=== PATIENT | female | born 1940 | race Two or more races ===

== ENCOUNTER 2016-12-22 10:16 | Emergency (ER) | payer MEDICARE, MEDICAID ==
[~2016-12-22] VITALS: Ht 30.5 cm; Wt 63.5 kg
[~2016-12-22 10:16] MED LIST: ALEN70TA55 PO; AMLO10TA2 PO; ASPI-231 PO; DICL-164 PO; HYDR25TA4 PO; METF-314 PO; OMEPRAZOLE PO; PAR20T PO
[2016-12-22 11:03] LABS: Basophils # (auto) 0 uL; Basophils % (auto) 0.5 % (0.0-2.0); Eosinophils # (auto) 0.2 uL; Eosinophils % (auto) 2.1 % (0.0-7.0); Hematocrit 36.8 % (36.0-46.0); Hemoglobin 12.3 g/dL (12.2-16.2); Lymphocytes # (auto) 2.9 uL; Lymphocytes % (auto) 37.3 % (10.0-50.0); Mean Corpuscular Hemoglobin 29.7 pg (28.0-32.0); Mean Corpuscular Hgb Conc. 33.4 g/dL (32.0-36.0); Mean Corpuscular Volume 88.8 fL (80.0-100.0); Mean Platelet Volume 10.1 fL (7.4-10.4); Monocytes # (auto) 0.4 uL; Monocytes % (auto) 5.6 % (0.0-12.0); Neutrophils # (auto) 4.3 uL; Neutrophils % (auto) 54.5 % (37.0-80.0); Platelet Count (auto) 257 10^3/uL (140-450); Red Cell Distribution Width 13.3 % (11.6-16.0); White Blood Cell 7.9 10^3/uL (4.4-10.8)
[2016-12-22 11:27] LABS: Albumin 3.8 g/dL (3.4-5.0); Alkaline Phosphatase 85 U/L (45-117); Anion Gap 14 (5-15); Aspartate Aminotransferase 18 U/L (15-37); Bilirubin, Total 0.3 mg/dL (0.2-1.0); Blood Urea Nitrogen 15 mg/dL (7-18); Calcium 8.9 mg/dL (8.5-10.1); Carbon Dioxide 27 mmol/L (21-32); Chloride 99 mmol/L (98-107); GFR African American 69 mL/min; GFR Non-African American 57 mL/min; Glucose 200 mg/dL (74-106); Magnesium 1.7 mg/dL (1.6-2.6); Potassium 3.1 mmol/L (3.5-5.1); Sodium 140 mmol/L (136-145)
[2016-12-22 11:29] LABS: INR 1.04 (0.9-1.15); Partial Thromboplastin Time 23.4 sec (22.64-33.71); Prothrombin Time 10.7 sec (9.37-12.3)
[2016-12-22 11:43] LABS: B-Type Natriuretic Peptide 39.56 pg/mL (0-100)
[2016-12-22 11:46] LABS: Temperature: 22.2 C (20.0-25.0)
[2016-12-22] MEDS ORDERED: POTASSIUM CHL 20 Meq TABLET PO ONE (13:15)
[2016-12-22 14:40] LABS: Urine RBC None Seen /hpf (0 - 4)
[2016-12-22 14:48] LABS: Urine Bilirubin Negative (Negative); Urine Blood Negative /uL (Negative); Urine Color Yellow (Yellow); Urine Glucose Normal (Normal); Urine Ketone Negative (Negative); Urine Nitrite Negative (Negative); Urine Squamous Epithelial Cell FEW /hpf (<5); Urine Urobilinogen Normal (Negative)
[2016-12-22 15:02] VITALS: BP 140/65
== END 2016-12-22 16:56 | disposition home or self-care (01) ==
LOC: EDBD 10:16 → ER 10:19
DX: S39.012A Strain of muscle, fascia and tendon of lower back, initial encounter (principal); M47.816 Spondylosis without myelopathy or radiculopathy, lumbar region; M79.7 Fibromyalgia; E87.6 Hypokalemia; R42 Dizziness and giddiness; R53.1 Weakness; E11.9 Type 2 diabetes mellitus without complications; I10 Essential (primary) hypertension; K21.9 Gastro-esophageal reflux disease without esophagitis; Z88.6 Allergy status to analgesic agent; W01.0XXA Fall on same level from slipping, tripping and stumbling without subsequent striking against object, initial encounter; Y93.89 Activity, other specified; Y99.8 Other external cause status; Y92.89 Other specified places as the place of occurrence of the external cause
CPT/HCPCS: 36415; 71010; 72131; 74176; 80053; 81001; 82962; 83690; 83735; 83880; 84484; 85025; 85610; 85730; 93005; 94761

== ENCOUNTER 2017-03-25 11:26 | Observation (INO) | payer MEDICARE, MEDICAID ==
[~2017-03-25] VITALS: Ht 152.4 cm; Wt 65.8 kg
[~2017-03-25 11:26] MED LIST changes: -ASPI-231 PO; -METF-314 PO
[2017-03-25] MEDS ORDERED: SODIUM CHLORIDE 0.9% 1,000 ML IVB ONE ×2 (11:48→13:12)
[2017-03-25 13:25] LABS: Basophils # (auto) 0 uL; Basophils % (auto) 0.5 % (0.0-2.0); CONDITION Y; Eosinophils # (auto) 0.2 uL; Eosinophils % (auto) 1.6 % (0.0-7.0); Hematocrit 37.3 % (36.0-46.0); Hemoglobin 12.7 g/dL (12.2-16.2); Lymphocytes # (auto) 2.4 uL; Lymphocytes % (auto) 26.3 % (10.0-50.0); Mean Corpuscular Hemoglobin 29.9 pg (28.0-32.0); Mean Corpuscular Hgb Conc. 34.1 g/dL (32.0-36.0); Mean Corpuscular Volume 87.5 fL (80.0-100.0); Mean Platelet Volume 9.9 fL (7.4-10.4); Monocytes # (auto) 0.6 uL; Monocytes % (auto) 6.7 % (0.0-12.0); Neutrophils % (auto) 64.9 % (37.0-80.0); Platelet Count (auto) 289 10^3/uL (140-450); Red Cell Distribution Width 13.3 % (11.6-16.0); White Blood Cell 9.3 10^3/uL (4.4-10.8)
[2017-03-25 13:40] LABS: INR 1.04 (0.9-1.15); Partial Thromboplastin Time 25.7 sec (22.64-33.71); Prothrombin Time 11.3 sec (9.37-12.3)
[2017-03-25 13:46] LABS: Magnesium 1.5 mg/dL (1.6-2.6)
[2017-03-25 13:50] LABS: Albumin 3.6 g/dL (3.4-5.0); Bilirubin, Total 0.4 mg/dL (0.2-1.0); Calcium 8.9 mg/dL (8.5-10.1); Total Protein 7.8 g/dL (6.4-8.2)
[2017-03-25 13:59] LABS: Potassium 2.9 mmol/L (3.5-5.1)
[2017-03-25] MEDS ORDERED: POTASSIUM CHL 20MEQ/100ML 100 ML IV SCH (14:15)
[2017-03-25] MEDS ORDERED: MAGNESIUM SULFATE 1GM/100ML 100 ML IV SCH (14:15)
[2017-03-25 15:11] LABS: Urine Bilirubin Negative (Negative); Urine Blood TRACE /uL (Negative); Urine Color Yellow (Yellow); Urine Glucose Normal (Normal); Urine Ketone Negative (Negative); Urine Mucus FEW (None Seen); Urine Nitrite Negative (Negative); Urine RBC 4 /hpf (0 - 4); Urine Squamous Epithelial Cell FEW /hpf (<5); Urine Urobilinogen Normal (Negative); Urine pH 6.5 (5.0-8.0)
[2017-03-25] MEDS ORDERED: POTASSIUM CHL 10% (20 MEQ/15ML) ORAL SOLN ONE (15:56)
[2017-03-25] MEDS ORDERED: POTASSIUM CHL 10% (20 MEQ/15ML) ORAL SOLN PO ONE (16:00)
[2017-03-25 16:03] VITALS: BP 138/66
== END 2017-03-25 16:21 | disposition short-term general hospital (02) | DRG 65 ==
LOC: EDBD 11:26 → ER 11:36 → OVERFLOW 13:16 → ER 16:10
PROVIDERS: ADMIT Family Medicine; ATTEND Family Medicine
DX: I61.8 Other nontraumatic intracerebral hemorrhage (principal); G81.94 Hemiplegia, unspecified affecting left nondominant side; N39.0 Urinary tract infection, site not specified; E11.9 Type 2 diabetes mellitus without complications; E78.5 Hyperlipidemia, unspecified; E83.42 Hypomagnesemia; E87.6 Hypokalemia; F01.50 Vascular dementia, unspecified severity, without behavioral disturbance, psychotic disturbance, mood disturbance, and anxiety; F32.9 Major depressive disorder, single episode, unspecified; I10 Essential (primary) hypertension; K21.9 Gastro-esophageal reflux disease without esophagitis; M81.0 Age-related osteoporosis without current pathological fracture; I67.2 Cerebral atherosclerosis; Z83.3 Family history of diabetes mellitus
CPT/HCPCS: 36415; 70450; 71010; 80053; 80320; 81001; 82962; 83735; 84484; 85025; 85610; 85730; 87040; 93005; 96361; 96365; 96368; 99285; G0378; J3475; J3480; J7030; 96367; 99291

== ENCOUNTER 2018-06-20 13:40 | Inpatient (IN) | payer MEDICARE, MEDICAID ==
[~2018-06-20] VITALS: Ht 152.4 cm; Wt 66.5 kg
[~2018-06-20 13:40] MED LIST changes: +ALEN1TAB32 PO; -ALEN70TA55 PO; +AMLO10TA12 PO; -AMLO10TA2 PO
[2018-06-20] MEDS ORDERED: SODIUM CHLORIDE 0.9% 1,000 ML IV ONE (13:43)
[2018-06-20] MEDS ORDERED: ONDANSETRON HCL 4 MG/2 ML VIAL IV ONE (13:45)
[2018-06-20 14:26] LABS: Basophils # (auto) 0.1 uL; Basophils % (auto) 0.8 % (0.0-2.0); Eosinophils # (auto) 0.3 uL; Eosinophils % (auto) 2.2 % (0.0-7.0); Hematocrit 34.3 % (36.0-46.0); Hemoglobin 11.1 g/dL (12.2-16.2); Lymphocytes # (auto) 1.4 uL; Lymphocytes % (auto) 12.3 % (10.0-50.0); Mean Corpuscular Hemoglobin 27.1 pg (28.0-32.0); Mean Corpuscular Hgb Conc. 32.3 g/dL (32.0-36.0); Mean Corpuscular Volume 83.9 fL (80.0-100.0); Monocytes # (auto) 0.8 uL; Monocytes % (auto) 6.9 % (0.0-12.0); Neutrophils # (auto) 9.1 uL; Neutrophils % (auto) 77.8 % (37.0-80.0); Platelet Count (auto) 358 10^3/uL (140-450); Red Blood Cells 4.09 10^6/uL (4.0-5.20); Red Cell Distribution Width 14.2 % (11.8-14.3); White Blood Cell 11.6 10^3/uL (4.4-10.8)
[2018-06-20 14:51] LABS: Alanine Aminotransferase 20 U/L (13-56); Albumin 2.4 g/dL (3.4-5.0); Alkaline Phosphatase 84 U/L (45-117); Anion Gap 9 (5-15); Aspartate Aminotransferase 20 U/L (15-37); BUN/Creatinine Ratio 17.4; Bilirubin, Total 0.4 mg/dL (0.2-1.0); Blood Urea Nitrogen 16 mg/dL (7-18); Calcium 8.2 mg/dL (8.5-10.1); Carbon Dioxide 21 mmol/L (21-32); Chloride 105 mmol/L (98-107); GFR African American 76 mL/min; GFR Non-African American 62 mL/min; Glucose 106 mg/dL (74-106); Potassium 3.5 mmol/L (3.5-5.1); Sodium 135 mmol/L (136-145); Total Protein 7.6 g/dL (6.4-8.2)
[2018-06-20 15:18] LABS: INR 1.06 (0.9-1.15); Partial Thromboplastin Time 28.8 sec (23.78-33.04); Prothrombin Time 11.3 sec (9.27-12.13)
[2018-06-20] MEDS ORDERED: DEXTROSE (50%) 50ML SYRG IV PRN (16:30)
[2018-06-20] MEDS ORDERED: MORPHINE SULF INJ 2 MG/ML SYRINGE 1ML IV PRN ×3 (16:30)
[2018-06-20] MEDS ORDERED: NITROGLYCERIN 0.4 MG SL TAB SL PRN (16:30)
[2018-06-20] MEDS ORDERED: LACTULOSE 20Gm/30ML SOLN PO PRN (16:30)
[2018-06-20] MEDS ORDERED: cefTRIAXone 1GM/10ml IVPUSH 10 ML IV ONE (16:30)
[2018-06-20] MEDS ORDERED: LORazepam 0.5 MG TAB PO PRN (16:30)
[2018-06-20] MEDS ORDERED: TEMAZEPAM 15 MG CAP PO PRN (16:30)
[2018-06-20 17:38] LABS: CRP High Sensitivity 10.8 mg/dL (< 0.3)
[2018-06-20] MEDS: InsuLIN REG 1unit/0.01ml Soln (100units/ml) SC SCH (18:00)
[2018-06-20] MEDS: ACCU-CHEK COMFORT CURVE STRIP VI SCH (18:04)
[2018-06-20 19:48] VITALS: BP 148/63
[2018-06-20 20:48] VITALS: BP 148/63
[2018-06-20] MEDS: metroNIDAZOLE 500MG/100ML 100 ML IV SCH (22:02)
[2018-06-20] MEDS: CARVEDILOL 3.125 MG TAB PO SCH (22:03)
[2018-06-21] MEDS: ACCU-CHEK COMFORT CURVE STRIP VI SCH ×4 (00:24→18:28)
[2018-06-21 01:35] LABS: Urine Bacteria FEW /hpf (None Seen); Urine Blood Negative /uL (Negative); Urine Hyaline Cast MOD /lpf (0 - 2); Urine Mucus FEW (None Seen); Urine Specific Gravity 1.021 (1.001-1.035); Urine WBC 33 /hpf (0 - 5)
[2018-06-21] MEDS ORDERED: LOSA25TA40 PO (03:23)
[2018-06-21] MEDS ORDERED: METF-370 PO (03:23)
[2018-06-21 05:11] VITALS: BP 142/62
[2018-06-21 05:47] LABS: Basophils # (auto) 0.1 uL; Basophils % (auto) 1.1 % (0.0-2.0); Eosinophils # (auto) 0.3 uL; Eosinophils % (auto) 2.9 % (0.0-7.0); Hematocrit 29.3 % (36.0-46.0); Hemoglobin 9.8 g/dL (12.2-16.2); Lymphocytes # (auto) 1.3 uL; Lymphocytes % (auto) 13.9 % (10.0-50.0); Mean Corpuscular Hemoglobin 27.8 pg (28.0-32.0); Mean Corpuscular Hgb Conc. 33.5 g/dL (32.0-36.0); Mean Corpuscular Volume 83.2 fL (80.0-100.0); Monocytes # (auto) 0.7 uL; Monocytes % (auto) 7.3 % (0.0-12.0); Neutrophils # (auto) 7.1 uL; Neutrophils % (auto) 74.8 % (37.0-80.0); Nucleated Red Blood Cells % 0.1 %; Platelet Count (auto) 327 10^3/uL (140-450); Red Blood Cells 3.52 10^6/uL (4.0-5.20); Red Cell Distribution Width 14.2 % (11.8-14.3); White Blood Cell 9.6 10^3/uL (4.4-10.8)
[2018-06-21] MEDS: metroNIDAZOLE 500MG/100ML 100 ML IV SCH (05:47)
[2018-06-21] MEDS: InsuLIN REG 1unit/0.01ml Soln (100units/ml) SC SCH ×4 (05:48→18:00)
[2018-06-21 06:06] LABS: Albumin 2.1 g/dL (3.4-5.0); BUN/Creatinine Ratio 19.5; Bilirubin, Total 0.4 mg/dL (0.2-1.0); Calcium 7.8 mg/dL (8.5-10.1); Potassium 3.7 mmol/L (3.5-5.1); Total Protein 6.3 g/dL (6.4-8.2)
[2018-06-21 06:12] LABS: Cholesterol 65 mg/dL (< 200); HDL Cholesterol 28 mg/dL (40-59); LDL Cholesterol 37 mg/dL (< 100); Triglycerides 71 mg/dL (< 150)
[2018-06-21 08:00] VITALS: BP 117/51
[2018-06-21] MEDS ORDERED: POTA1TAB61 PO (08:17)
[2018-06-21] MEDS ORDERED: cefTRIAXone 1GM/10ml IVPUSH 10 ML IV SCH (09:00)
[2018-06-21] MEDS ORDERED: PANT40TA2 PO (09:09)
[2018-06-21] MEDS ORDERED: SERT-138 PO (09:09)
[2018-06-21] MEDS ORDERED: ASPI81TA27 PO (09:11)
[2018-06-21] MEDS ORDERED: amLODIPine BESYLATE 5 MG TAB PO SCH (10:00)
[2018-06-21] MEDS: FUROSEMIDE 40 MG/4 ML VIAL IV SCH (10:43)
[2018-06-21] MEDS: CARVEDILOL 3.125 MG TAB PO SCH ×2 (10:44→22:25)
[2018-06-21] MEDS: PANTOPRAZOLE 40 MG TAB PO SCH (10:44)
[2018-06-21] MEDS: PARoxetine 20 MG TAB PO SCH (10:44)
[2018-06-21] MEDS: POTASSIUM CHL 20 Meq TABLET PO SCH (10:44)
[2018-06-21] MEDS: ENOXAPARIN SOD 30 MG/0.3 ML SYRINGE SC SCH (10:45)
[2018-06-21] MEDS: ENALAPRIL MALEATE 2.5 MG TAB PO SCH (10:45)
[2018-06-21 12:34] VITALS: BP 125/42
[2018-06-21] MEDS ORDERED: MORPHINE SULFATE 4 MG/ML SYR/VIAL IV PRN (16:00)
[2018-06-21 16:34] VITALS: BP 112/49
[2018-06-21] MEDS: SPIRONOLACTONE 25 MG TAB PO SCH (18:36)
[2018-06-21 21:24] VITALS: BP 123/56
[2018-06-22] MEDS: ACCU-CHEK COMFORT CURVE STRIP VI SCH ×4 (00:53→18:00)
[2018-06-22 05:15] VITALS: BP 124/54
[2018-06-22 05:57] LABS: Basophils # (auto) 0.1 uL; Eosinophils # (auto) 0.3 uL; Lymphocytes # (auto) 1.8 uL; Platelet Count (auto) 337 10^3/uL (140-450)
[2018-06-22 05:58] LABS: Eosinophils % (auto) 2.9 % (0.0-7.0); Hemoglobin 9.2 g/dL (12.2-16.2); Lymphocytes % (auto) 17.7 % (10.0-50.0); Mean Corpuscular Hemoglobin 27.3 pg (28.0-32.0); Mean Corpuscular Volume 82.6 fL (80.0-100.0); Monocytes # (auto) 0.7 uL; Monocytes % (auto) 6.9 % (0.0-12.0); Neutrophils # (auto) 7.1 uL; Neutrophils % (auto) 71.5 % (37.0-80.0); Red Blood Cells 3.39 10^6/uL (4.0-5.20); Red Cell Distribution Width 14.5 % (11.8-14.3)
[2018-06-22] MEDS: SPIRONOLACTONE 25 MG TAB PO SCH ×2 (06:00→18:00)
[2018-06-22] MEDS: InsuLIN REG 1unit/0.01ml Soln (100units/ml) SC SCH ×4 (06:00→18:00)
[2018-06-22 06:06] LABS: Albumin 2.1 g/dL (3.4-5.0); BUN/Creatinine Ratio 21.6; Bilirubin, Total 0.4 mg/dL (0.2-1.0); Calcium 8.2 mg/dL (8.5-10.1); Potassium 3.6 mmol/L (3.5-5.1); Total Protein 6.1 g/dL (6.4-8.2)
[2018-06-22 09:34] VITALS: BP 113/55
[2018-06-22] MEDS: FUROSEMIDE 40 MG/4 ML VIAL IV SCH (10:00)
[2018-06-22] MEDS: ENALAPRIL MALEATE 2.5 MG TAB PO SCH (10:00)
[2018-06-22] MEDS: ONDANSETRON HCL 4 MG/2 ML VIAL IV PRN (11:38)
[2018-06-22] MEDS: PANTOPRAZOLE 40 MG TAB PO SCH (11:39)
[2018-06-22] MEDS: ENOXAPARIN SOD 30 MG/0.3 ML SYRINGE SC SCH (11:39)
[2018-06-22] MEDS: PARoxetine 20 MG TAB PO SCH (11:40)
[2018-06-22] MEDS: POTASSIUM CHL 20 Meq TABLET PO SCH (11:40)
[2018-06-22 14:34] VITALS: BP 128/53
[2018-06-22 16:58] VITALS: BP 117/53
[2018-06-22 21:30] VITALS: BP 127/65
[2018-06-22] MEDS: CARVEDILOL 3.125 MG TAB PO SCH (21:52)
[2018-06-23] MEDS: ACCU-CHEK COMFORT CURVE STRIP VI SCH ×5 (00:06→21:51)
[2018-06-23 05:00] VITALS: BP 125/51
[2018-06-23] MEDS: InsuLIN REG 1unit/0.01ml Soln (100units/ml) SC SCH ×5 (05:29→21:50)
[2018-06-23] MEDS: SPIRONOLACTONE 25 MG TAB PO SCH ×2 (05:44→17:52)
[2018-06-23 06:15] LABS: Basophils # (auto) 0.1 uL; Basophils % (auto) 0.7 % (0.0-2.0); Eosinophils # (auto) 0.2 uL; Hematocrit 28.9 % (36.0-46.0); Hemoglobin 9.5 g/dL (12.2-16.2); Lymphocytes # (auto) 1.5 uL; Lymphocytes % (auto) 15.4 % (10.0-50.0); Mean Corpuscular Hgb Conc. 32.7 g/dL (32.0-36.0); Mean Corpuscular Volume 82.5 fL (80.0-100.0); Monocytes # (auto) 0.8 uL; Monocytes % (auto) 7.7 % (0.0-12.0); Neutrophils # (auto) 7.4 uL; Neutrophils % (auto) 74.2 % (37.0-80.0); Nucleated Red Blood Cells % 0.2 %; Platelet Count (auto) 362 10^3/uL (140-450); Red Cell Distribution Width 14.5 % (11.8-14.3)
[2018-06-23 06:42] LABS: BUN/Creatinine Ratio 25.4; Potassium 3.6 mmol/L (3.5-5.1)
[2018-06-23 09:25] VITALS: BP 124/50
[2018-06-23] MEDS: POTASSIUM CHL 20 Meq TABLET PO SCH (10:11)
[2018-06-23] MEDS: ENOXAPARIN SOD 30 MG/0.3 ML SYRINGE SC SCH (10:11)
[2018-06-23] MEDS: PARoxetine 20 MG TAB PO SCH (10:11)
[2018-06-23] MEDS: PANTOPRAZOLE 40 MG TAB PO SCH (10:11)
[2018-06-23] MEDS: FUROSEMIDE 40 MG/4 ML VIAL IV SCH (10:12)
[2018-06-23] MEDS: ENALAPRIL MALEATE 2.5 MG TAB PO SCH (10:12)
[2018-06-23] MEDS: CARVEDILOL 3.125 MG TAB PO SCH ×2 (10:13→21:37)
[2018-06-23] MEDS: ONDANSETRON HCL 4 MG/2 ML VIAL IV PRN (13:53)
[2018-06-23 14:41] VITALS: BP 115/54
[2018-06-23 17:19] VITALS: BP 133/58
[2018-06-23 22:00] VITALS: BP 138/67
[2018-06-24 05:00] VITALS: BP 143/56
[2018-06-24] MEDS: ACCU-CHEK COMFORT CURVE STRIP VI SCH ×4 (05:04→20:48)
[2018-06-24] MEDS: InsuLIN REG 1unit/0.01ml Soln (100units/ml) SC SCH ×4 (05:04→20:48)
[2018-06-24] MEDS: SPIRONOLACTONE 25 MG TAB PO SCH ×2 (05:09→18:43)
[2018-06-24 05:57] LABS: Basophils # (auto) 0.1 uL; Basophils % (auto) 0.9 % (0.0-2.0); Eosinophils # (auto) 0.3 uL; Eosinophils % (auto) 3.1 % (0.0-7.0); Hematocrit 29.3 % (36.0-46.0); Hemoglobin 9.7 g/dL (12.2-16.2); Lymphocytes # (auto) 1.5 uL; Lymphocytes % (auto) 14.8 % (10.0-50.0); Mean Corpuscular Hemoglobin 27.2 pg (28.0-32.0); Mean Corpuscular Hgb Conc. 32.9 g/dL (32.0-36.0); Mean Corpuscular Volume 82.7 fL (80.0-100.0); Monocytes # (auto) 0.9 uL; Monocytes % (auto) 8.6 % (0.0-12.0); Neutrophils # (auto) 7.3 uL; Neutrophils % (auto) 72.6 % (37.0-80.0); Platelet Count (auto) 368 10^3/uL (140-450); Red Blood Cells 3.55 10^6/uL (4.0-5.20); Red Cell Distribution Width 14.6 % (11.8-14.3); White Blood Cell 10.1 10^3/uL (4.4-10.8)
[2018-06-24 06:01] LABS: BUN/Creatinine Ratio 17.3; Calcium 7.6 mg/dL (8.5-10.1); Potassium 3.4 mmol/L (3.5-5.1)
[2018-06-24 09:21] VITALS: BP 145/73
[2018-06-24] MEDS: PANTOPRAZOLE 40 MG TAB PO SCH (09:56)
[2018-06-24] MEDS: PARoxetine 20 MG TAB PO SCH (09:56)
[2018-06-24] MEDS: ENALAPRIL MALEATE 2.5 MG TAB PO SCH (09:57)
[2018-06-24] MEDS: POTASSIUM CHL 20 Meq TABLET PO SCH (09:57)
[2018-06-24] MEDS: CARVEDILOL 3.125 MG TAB PO SCH ×2 (09:58→22:57)
[2018-06-24] MEDS: FUROSEMIDE 40 MG/4 ML VIAL IV SCH (09:58)
[2018-06-24] MEDS: ENOXAPARIN SOD 30 MG/0.3 ML SYRINGE SC SCH (09:58)
[2018-06-24] MEDS ORDERED: POTASSIUM EFFERVESENT TAB 25 MEQ PO ONE (10:30)
[2018-06-24 12:43] VITALS: BP 150/58
[2018-06-24 17:11] VITALS: BP 140/53
[2018-06-24] MEDS ORDERED: cloNIDine HCL 0.1 MG TAB PO PRN (17:30)
[2018-06-24] MEDS ORDERED: InsuLIN REG 1unit/0.01ml Soln (100units/ml) ONE (18:45)
[2018-06-24 22:00] VITALS: BP 137/67
[2018-06-25 05:00] VITALS: BP 114/48
[2018-06-25] MEDS: InsuLIN REG 1unit/0.01ml Soln (100units/ml) SC SCH ×2 (05:13→12:00)
[2018-06-25] MEDS: ACCU-CHEK COMFORT CURVE STRIP VI SCH ×2 (05:14→12:46)
[2018-06-25] MEDS: SPIRONOLACTONE 25 MG TAB PO SCH (05:28)
[2018-06-25 05:40] LABS: Basophils # (auto) 0.1 uL; Basophils % (auto) 0.6 % (0.0-2.0); Eosinophils # (auto) 0.2 uL; Eosinophils % (auto) 2.4 % (0.0-7.0); Hematocrit 30.8 % (36.0-46.0); Hemoglobin 10.3 g/dL (12.2-16.2); Lymphocytes # (auto) 1.6 uL; Lymphocytes % (auto) 16.1 % (10.0-50.0); Mean Corpuscular Hemoglobin 27.6 pg (28.0-32.0); Mean Corpuscular Hgb Conc. 33.4 g/dL (32.0-36.0); Mean Corpuscular Volume 82.5 fL (80.0-100.0); Monocytes # (auto) 0.9 uL; Monocytes % (auto) 8.6 % (0.0-12.0); Neutrophils # (auto) 7.3 uL; Neutrophils % (auto) 72.3 % (37.0-80.0); Platelet Count (auto) 383 10^3/uL (140-450); Red Blood Cells 3.73 10^6/uL (4.0-5.20); Red Cell Distribution Width 14.6 % (11.8-14.3); White Blood Cell 10.1 10^3/uL (4.4-10.8)
[2018-06-25 05:59] LABS: BUN/Creatinine Ratio 13.5; Calcium 7.8 mg/dL (8.5-10.1); Potassium 3.9 mmol/L (3.5-5.1)
[2018-06-25 09:00] VITALS: BP 101/89
[2018-06-25] MEDS: PANTOPRAZOLE 40 MG TAB PO SCH (09:32)
[2018-06-25] MEDS: PARoxetine 20 MG TAB PO SCH (09:32)
[2018-06-25] MEDS: ENOXAPARIN SOD 30 MG/0.3 ML SYRINGE SC SCH (09:32)
[2018-06-25] MEDS: POTASSIUM CHL 20 Meq TABLET PO SCH (09:32)
[2018-06-25] MEDS: FUROSEMIDE 40 MG/4 ML VIAL IV SCH (09:32)
[2018-06-25] MEDS: CARVEDILOL 3.125 MG TAB PO SCH (09:33)
[2018-06-25] MEDS: ENALAPRIL MALEATE 2.5 MG TAB PO SCH (09:34)
[2018-06-25 10:06] VITALS: BP 101/89
[2018-06-25 12:59] VITALS: BP 107/55
== END 2018-06-25 14:15 | disposition home health service (06) ==
LOC: EDBD 13:40 → ER 13:41 → TELE 13:42 → TELE-CENTR 19:40
PROVIDERS: ADMIT Internal Medicine; ATTEND Internal Medicine
PROC: 0W9G3ZZ Drainage of Peritoneal Cavity, Percutaneous Approach (ICD-10-PCS; principal; 2018-06-24)
DX: K74.60 Unspecified cirrhosis of liver (principal); E43 Unspecified severe protein-calorie malnutrition; J90 Pleural effusion, not elsewhere classified; R18.8 Other ascites; D63.8 Anemia in other chronic diseases classified elsewhere; E11.9 Type 2 diabetes mellitus without complications; I50.9 Heart failure, unspecified; I11.0 Hypertensive heart disease with heart failure; F03.90 Unspecified dementia, unspecified severity, without behavioral disturbance, psychotic disturbance, mood disturbance, and anxiety; M19.90 Unspecified osteoarthritis, unspecified site; F32.9 Major depressive disorder, single episode, unspecified; I70.8 Atherosclerosis of other arteries; J98.11 Atelectasis; K21.9 Gastro-esophageal reflux disease without esophagitis; K59.00 Constipation, unspecified; Z74.01 Bed confinement status; I69.398 Other sequelae of cerebral infarction; Z79.4 Long term (current) use of insulin; Z88.8 Allergy status to other drugs, medicaments and biological substances
CPT/HCPCS: 10022; 36415; 49083; 71045; 74176; 76700; 76942; 80048; 80053; 80061; 81001; 82150; 82270; 82378; 82550; 82962; 83036; 83605; 83690; 83880; 84443; 84484; 85025; 85610; 85652; 85730; 86141; 87040; 87086; 93005; 93306; 93970; 96361; 96374; 96375; J0696; J1815; J2405; J3490